=== PATIENT | female | born 1985 | race Caucasian/White ===

== ENCOUNTER 2021-04-30 08:27 | Day surgery (SDC) | payer OTHER ==
[2021-04-24 16:18] VITALS: BMI 34.2
[2021-04-30] MEDS ORDERED: Gabapentin 300 MG CAP ONE (08:56)
[2021-04-30] MEDS ORDERED: Lidocaine 1% MPF 2 ML VIAL ONE (08:56)
[2021-04-30] MEDS ORDERED: Famotidine/PF 20 mg/2ml Vial ONE (08:56)
[2021-04-30] MEDS ORDERED: CeleCOXIB 100 MG CAP ONE (08:56)
[2021-04-30 09:41] LABS: #Basophils 0.1 10x3/uL (0.0-0.2); #Eosinphils 0.1 10x3/uL (0.0-0.5); #Monocytes 0.7 10x3/uL (0.0-1.1); #Neutrophils 4.4 10x3/uL (1.5-8.4); %Basophils 0.8 % (0.0-2.0); %Eosinophils 1.5 % (0.0-6.0); %Monocytes 9.9 % (0.0-10.0); %Neutrophils 59.7 % (40.0-75.0); Mean Corpuscular Hemoglobin 31.5 pg (27.0-33.0); Mean Corpuscular Volume 90.1 fl (81.6-98.3); Platelet Count 251 10x3/uL (150-450); RBC Distribution Width 12.7 % (11.5-14.5); Red Blood Cell (RBC) Count 4.44 10x6/uL (3.90-5.03); White Blood Cell (WBC) Count 7.4 10x3/uL (3.5-10.5)
[2021-04-30] MEDS ORDERED: EPINEPHrine 1 MG/ML AMP ONE (09:46)
[2021-04-30] MEDS ORDERED: Bupivacaine PF 0.5% 30 ML VIAL ONE (09:47)
[2021-04-30 09:51] LABS: BHCG - Serum Negative (NEGATIVE); Pregs Control Background? CLEAR/WHITE (CLR/WHITE); Pregs Control Bar Appear? YES (CONTROL BAR)
[2021-04-30 10:01] LABS: ALT (SGPT) 20 U/L (8-55); AST (SGOT) 23 U/L (5-34); Albumin 4.7 g/dL (3.5-5.0); Alkaline Phosphatase 51 U/L (40-110); Anion Gap 14 mmol/L (10-20); BUN (Urea Nitrogen) 20 mg/dL (7.0-18.7); Bilirubin, Direct 0.9 mg/dL (0.1-0.3); Bilirubin, Total 2.6 mg/dL (0.2-1.2); Calc. Creatinine Clearance 94 mL/min (70-130); Carbon Dioxide 25 mmol/L (22-29); Chloride 104 mmol/L (98-107); Glucose 97 mg/dL (70-105); Potassium 3.5 mmol/L (3.5-5.1); Protein, Total 7.9 g/dL (6.0-8.3); Sodium 139 mmol/L (136-145)
[2021-04-30] MEDS ORDERED: PROPOFOL 20 ML ONE (10:20)
[2021-04-30] MEDS ORDERED: Fentanyl 250 MCG/5 ML VIAL ONE (10:20)
[2021-04-30] MEDS ORDERED: Metoclopramide HCl 10 MG/2 ML VIAL ONE (10:21)
[2021-04-30] MEDS ORDERED: Glycopyrrolate 0.2 MG/ML 5 ML SYRINGE ONE (10:21)
[2021-04-30] MEDS ORDERED: Succinylcholine 200 MG/10 ml SYRINGE FS ONE (10:21)
[2021-04-30] MEDS ORDERED: Rocuronium Bromide 10 MG/ML (10ML VIAL) ONE (10:21)
[2021-04-30] MEDS ORDERED: Lidocaine 1% PF 5 ML VIAL ONE (10:21)
[2021-04-30] MEDS ORDERED: Ondansetron PF 4 MG/2 ML Vial ONE ×2 (10:21→15:10)
[2021-04-30] MEDS ORDERED: Dexamethasone 4 mg/ml Vial ONE (10:21)
[2021-04-30] MEDS ORDERED: Midazolam HCl 2 mg/2 ml Vial ONE (10:48)
[2021-04-30] MEDS ORDERED: Ketorolac Tromethamine 30 MG/ML VIAL ONE (12:11)
[2021-04-30] MEDS ORDERED: HYDROcodone/Acetaminophen 5/325 mg Tablet ONE (15:11)
== END 2021-04-30 16:10 | disposition home or self-care (01) ==
LOC: CSHSDC 08:27
PROVIDERS: ATTEND Student in an Organized Health Care Education/Training Program
PROC: 0UPD8HZ Removal of Contraceptive Device from Uterus and Cervix, Via Natural or Artificial Opening Endoscopic (ICD-10-PCS; principal; 2021-04-30)
PROC: 0UDB8ZZ Extraction of Endometrium, Via Natural or Artificial Opening Endoscopic (ICD-10-PCS; principal; 2021-04-30)
PROC: 0U5B8ZZ Destruction of Endometrium, Via Natural or Artificial Opening Endoscopic (ICD-10-PCS; principal; 2021-04-30)
PROC: 0UT74ZZ Resection of Bilateral Fallopian Tubes, Percutaneous Endoscopic Approach (ICD-10-PCS; principal; 2021-04-30)
PROC: 0UT24ZZ Resection of Bilateral Ovaries, Percutaneous Endoscopic Approach (ICD-10-PCS; principal; 2021-04-30)
DX: D25.2 Subserosal leiomyoma of uterus (principal); N80.3 Endometriosis of pelvic peritoneum; N83.202 Unspecified ovarian cyst, left side; N70.11 Chronic salpingitis; I42.9 Cardiomyopathy, unspecified; Z79.899 Other long term (current) drug therapy; Z88.8 Allergy status to other drugs, medicaments and biological substances; Z95.810 Presence of automatic (implantable) cardiac defibrillator
CPT/HCPCS: 36415; 80048; 80076; 84703; 85025; 86850; 86900; 86901; 88305; C1713; J0171; J0690; J1100; J1885; J2250; J2405; J2704; J2765; J3010; S0020; S0028

== ENCOUNTER 2024-04-17 12:58 | Emergency (ER) | payer BC ==
[2024-04-17 15:55] LABS: Bilirubin Neg (Negative); Blood, Urine Negative (Negative); Clarity Clear (Clear); Glucose, Urine (Dipstick) Normal (Negative); Ketone, Urine 5 mg/dL (Negative); Leukocyte Negative (Negative); Nitrite Negative (Negative); Protein, Urine (Dipstick) Negative (Neg-Trace); Urobilinogen Normal mg/dL (Less than 2)
[2024-04-17 15:58] LABS: Pregnancy Test - Urine (BHCG) Negative (Negative); Pregu Control Background? CLEAR/WHITE (CLR/WHITE); Pregu Control Bar Appear? YES (CONTROL BAR)
[2024-04-17 16:09] LABS: ALT (SGPT) 38 U/L (8-55); AST (SGOT) 33 U/L (5-34); Albumin 4.6 g/dL (3.5-5.0); Alkaline Phosphatase 67 U/L (40-110); Anion Gap 20 mmol/L (10-20); BUN (Urea Nitrogen) 17 mg/dL (7.0-18.7); Bilirubin, Total 3.4 mg/dL (0.2-1.2); Calc. Creatinine Clearance 0 mL/min (70-130); Calcium 10.4 mg/dL (7.8-10.44); Carbon Dioxide 19 mmol/L (22-29); Chloride 105 mmol/L (98-107); Estimated GFR 69; Glucose 93 mg/dL (70-105); Magnesium 1.4 mg/dL (1.6-2.6); Potassium 3.9 mmol/L (3.5-5.1); Protein, Total 7.6 g/dL (6.0-8.3); Sodium 140 mmol/L (136-145)
[2024-04-17 16:10] LABS: #Basophils 0.06 10x3/uL (0.0-0.2); #Eosinophils 0.08 10x3/uL (0.0-0.5); #Monocytes 0.67 10x3/uL (0.0-1.1); #Neutrophils 7.33 10x3/uL (1.5-8.4); %Basophils 0.6 % (0.0-2.0); %Eosinophils 0.8 % (0.0-6.0); %Monocytes 6.7 % (0.0-10.0); %Neutrophils 72.8 % (40.0-75.0); Hematocrit 44.2 % (34.9-44.5); Hemoglobin 15.6 g/dL (12.0-15.5); Mean Corpuscular HGB CONC 35.3 g/dL (32.0-36.0); Mean Corpuscular Hemoglobin 32.5 pg (27.0-33.0); Mean Corpuscular Volume 92.1 fL (81.6-98.3); Mean Platelet Volume 9.2 fL (7.4-10.4); Platelet Count 216 10x3/uL (150-450); RBC Distribution Width 12.4 % (11.5-14.5); White Blood Cell (WBC) Count 10.1 10x3/uL (3.5-10.5)
[2024-04-17 16:16] LABS: Troponin I 0.014 ng/mL (< 0.028)
[2024-04-17 16:27] LABS: Bacteria/HPF Rare-Few HPF (None Seen); CAUTI Indications for Culture Pelvic or flank pain; RBC/HPF None Seen HPF (0-3); Squamous Epithelial 0-3 HPF (0-3); WBC/HPF 0-3 HPF (0-3)
[2024-04-17 16:28] LABS: Urine Culture Reflex No No
== END 2024-04-17 17:15 | disposition home or self-care (01) ==
LOC: CSHERS 12:58
DX: R07.9 Chest pain, unspecified (principal); R06.02 Shortness of breath; I50.9 Heart failure, unspecified; I48.91 Unspecified atrial fibrillation; Z55.0 Illiteracy and low-level literacy
CPT/HCPCS: 71045; 80053; 81001; 81025; 83735; 83880; 84484; 85025; 85379; 93005; 93010; 94760